=== PATIENT | female | born 1935 | race Caucasian/White ===

== ENCOUNTER 2016-12-26 13:34 | Emergency (ER) | payer MEDICARE, BC ==
[~2016-12-26] VITALS: Ht 168.9 cm; Wt 70.0 kg
[~2016-12-26 13:34] MED LIST: ATOR20TA PO; LORA-392 PO; METO50TA PO; REQU2TAB3 PO; ULTR50TA PO
[2016-12-26 13:43] VITALS: BP 124/62; PULSE 53; RESP 16; TEMP 97.6; O2SAT 100
[2016-12-26] MEDS ORDERED: LIPI20TA PO (14:03)
[2016-12-26] MEDS ORDERED: TRAM50TA PO (14:03)
[2016-12-26] MEDS ORDERED: METO50TA PO (14:03)
[2016-12-26] MEDS ORDERED: ROPI2 PO (14:03)
[2016-12-26 14:07] LABS: BLOOD, URINE LARGE (NEG); GLUCOSE,URINE NEG (NEG); KETONE, URINE NEG (NEG); NITRITE,URINE NEG (NEG)
--- NOTE | 2016-12-26 14:08 | PD ---
HPI Chief Complaint: Complaint Time Seen by Provider: 14:05 Travel History International Travel<30 days: No Contact w/Intl Traveler<30days: No Traveled to known affect area: No History of Present Illness HPI 81-year-old female presents to the emergency department for evaluation of urinary urgency and frequency with intermittent dysuria. Patient denies any flank pain. She denies any fevers or chills. No vomiting. Patient has a history of restless leg syndrome, hypertension, hyperlipidemia. Patient denies any other complaints at this time. PFSH Past Medical History Hx Anticoagulant Therapy: No Arthritis: Yes Anxiety: Yes Depression: Yes Cancer: No Cardiovascular Problems: Yes High Cholesterol: Yes Chest Pain: Yes Diabetes: No Diminished Hearing: No Endocrine: No Genitourinary: Yes (HAS A CYST ON KIDNEY PER PT.) Headaches: Yes Hypertension: Yes Immune Disorder: No Musculoskeletal: Yes Neurologic: Yes (RESTLESS LEGS) Psychiatric: Yes Reproductive: No Respiratory: Yes Sleep Apnea: Yes (USES CPAP MACHINE) Tetanus Vaccination: < 5 Years Influenza Vaccination: Yes ?: Not Past Surgical History Abdominal Surgery: Yes (CHOLECYSTECTOMY) Cholecystectomy: Yes Eye Surgery: Yes (BIALTERAL CATARACT REMOVAL) Gynecologic Surgery: Yes (HYSTERECTOMY) Hysterectomy: Yes Oral Surgery: Yes (DENTAL IMPLANTS) Other Surgery: Yes Social History Alcohol Use: Yes (Socially) Tobacco Use: No Substance Use: No Allergies-Medications (Allergen,Severity, Reaction): Coded Allergies: No Known Allergies (Verified , 12/26/16) Reported Meds & Prescriptions Reported Meds & Active Scripts Active Reported Metoprolol Tartrate 50 Mg Tab 50 Mg PO DAILY Lipitor (Atorvastatin Calcium) 20 Mg Tab 20 Mg PO HS Requip (Ropinirole HCl) 2 Mg Tab 2 Mg PO HS Tramadol (Tramadol HCl) 50 Mg Tab 50 Mg PO Q4H PRN Review of Systems Except as stated in HPI: all other systems reviewed are Neg Physical Exam Narrative GENERAL: Well-developed well-nourished elderly female patient, ambulatory. Afebrile. Patient appears well on exam. SKIN: Warm and dry. HEAD: Normocephalic. Atraumatic. EYES: No scleral icterus. No injection or drainage. NECK: Supple, trachea midline. No JVD or lymphadenopathy. CARDIOVASCULAR: Regular rate and rhythm without murmurs, gallops, or rubs. RESPIRATORY: Breath sounds equal bilaterally. No accessory muscle use. Lungs sounds are clear to auscultation. GASTROINTESTINAL: Abdomen soft, non-tender, nondistended. MUSCULOSKELETAL: No cyanosis, or edema. BACK: No CVA tenderness. Data Data Last Documented VS Vital Signs Date Time Temp Pulse Resp B/P Pulse Ox O2 Delivery O2 Flow Rate FiO2 12/26/16 13:43 97.6 53 16 124/62 100 Orders Urinalysis - C+S If Indicated (12/26/16 13:45) Ct Abd/Pel W/O Iv Contrast (12/26/16 ) Labs Laboratory Tests Test 12/26/16 13:55 Urine Collection Type CLEAN CATCH Urine Color YELLOW Urine Turbidity CLEAR Urine pH 6.0 Urine Specific [place] 1.023 Urine Protein NEG mg/dL Urine Glucose (UA) NEG mg/dL Urine Ketones NEG mg/dL Urine Occult Blood LARGE Urine Nitrite NEG Urine Bilirubin NEG Urine Leukocyte Esterase NEG Urine RBC 15-19 /hpf Urine WBC 0-2 /hpf Urine Squamous Epithelial 0-5 /hpf Cells Microscopic Urinalysis Comment CULT NOT INDICATED MDM Medical Decision Making Medical Screen Exam Complete: Yes Emergency Medical Condition: Yes Medical Record Reviewed: Yes Differential Diagnosis UTI versus pyelonephritis versus dysuria versus unlikely nephrolithiasis Narrative Course 81-year-old female presents to the emergency department for evaluation of urinary frequency and urgency with intermittent dysuria. Patient is nontoxic appearing and physical exam is reassuring. UA is ordered and pending. UA shows large occult blood, 15-19 rbc's, no evidence of acute infection. CT abdomen/pelvis without IV contrast is ordered to rule out nephrolithiasis. CT abdomen/pelvis shows bilobular septated cyst 6.2 cm in size upper pole the left kidney; 6.2 cm lobular cystic abnormality in the right pelvis adnexa or with curvilinear areas of calcified wall most likely representing ovarian cyst; uncomplicated diverticuli the colon predominating in the descending and sigmoid region; surgical absence of gallbladder and uterus. Patient reports history of above cyst and is followed with her primary care physician. I instructed her to follow back up with her primary care physician for urinary symptoms. Patient appears well and nontoxic on physical exam. She' ll be discharged with a prescription for Pyridium. She is agreeable to this plan. Diagnosis Primary Impression: Dysuria Referrals: Primary Care Physician call for appointment Patient Instructions: Dysuria (ED), General Instructions Additional Instructions: Take Pyridium as instructed as needed. Follow-up with your primary care physician Return to the emergency department for any acute worsening of symptoms. Med/Other Pt SpecificInfo: Prescription(s) given Scripts Phenazopyridine (Pyridium)200 Mg Dcx027 Mg PO Q8HR PRN (DYSURIA) #12 TAB Ref 0 Prov:Lucía Sullivan 12/26/16 Disposition: 01 DISCHARGE HOME Condition: Stable Lucía Sullivan Dec 26, 2016 14:08
[2016-12-26 14:14] LABS: METHOD OF COLLECTION CLEAN CATCH; URINE COLOR YELLOW (YELLW/STRAW); WBC, URINE 0-2 /hpf (0-5)
[2016-12-26 14:15] LABS: COMMENT (UR) CULT NOT INDICATED; CULTURE IF INDICATED CULT NOT INDICATED; RBC, URINE 15-19 /hpf (0-3); SQUAMOUS EPITHELIAL CELL URINE 0-5 /hpf (0-5)
--- NOTE | 2016-12-26 15:42 | RADHPO ---
EXAM DATE/TIME: 12/26/2016 15:21 [facility] COMPARISON: No previous studies available for comparison. INDICATIONS : Intermittent dysuria, hematuria with frequent urination. ORAL CONTRAST: No oral contrast ingested. RADIATION DOSE: 12.99 CTDIvol (mGy) MEDICAL HISTORY : Hypertension. SURGICAL HISTORY : Cholecystectomy. Hysterectomy. ENCOUNTER: Initial ACUITY: 2 days PAIN SCALE: 8/10 LOCATION: abdomen TECHNIQUE: Volumetric scanning of the abdomen and pelvis was performed. Using automated exposure control and ad justment of the mA and/or kV according to patient size, radiation dose was kept as low as reasonably achievable to obtain optimal diagnostic quality images. FINDINGS: LOWER LUNGS: The visualized lower lungs are clear. LIVER: Homogeneous density without lesion. There is no dilation of the biliary tree. Clips in place prior c holecystectomy. SPLEEN: Normal size without lesion. PANCREAS: Within normal limits. KIDNEYS: Normal in size and shape. There is no , stone, or hydronephrosis. There is a septated cyst off the u pper pole of the left kidney measuring maximally 6.4 cm in size ADRENAL GLANDS: Within normal limits. VASCULAR: There is no aortic aneurysm. BOWEL/MESENTERY: Diverticuli of the colon predominating in the descending and sigmoid region. ABDOMINAL WALL: Within normal limits. RETROPERITONEUM: There is no lymphadenopathy. BLADDER: No wall thickening or mass. REPRODUCTIVE: Surgical absence of uterus. In the right pelvis there is 6.2 x 4.4 cm somewhat globular cystic fluidl jackson collection homogeneous with some portions of the wall curvilinear calcified. This may represent a n ovarian cyst. This does abut the sigmoid colon INGUINAL: There is no lymphadenopathy or hernia. MUSCULOSKELETAL: Bony structures are osteopenic with remote kyphoplasty of T12 and interspersed degenerative changes o f lumbar spine. 1 CONCLUSION: Bilobular septated cyst 6.2 cm in size upper pole the left kidney. . 6.2 cm lobular cystic abnormality in the right pelv is adnexa or with curvilinear areas of calcified wall most likely representing ovarian cyst. Uncomplicated diverticuli the colon predominating in the descending and sigmoid region. surgical absence of gallbladder and uterus. Donavon Reese MD on December 26, 2016 at 15:35 Board Certified Radiologist. This report was verified electronically.
[2016-12-26] MEDS ORDERED: PYRI200T4 PO (15:49)
== END 2016-12-26 15:56 | disposition home or self-care (01) ==
LOC: PHEFT 13:34
DX: R30.0 Dysuria (principal); I10 Essential (primary) hypertension
CPT/HCPCS: 74176; 81001

== ENCOUNTER 2017-06-02 12:15 | Emergency (ER) | payer MEDICARE, BC ==
[~2017-06-02] VITALS: Ht 167.6 cm; Wt 70.0 kg
[~2017-06-02 12:15] MED LIST changes: -ATOR20TA PO; +LIPI20TA PO; -LORA-392 PO; +PYRI200T4 PO; -REQU2TAB3 PO; +ROPI2 PO; +TRAM50TA PO; -ULTR50TA PO
[2017-06-02 12:16] VITALS: BP 105/43; PULSE 48; RESP 16; TEMP 97.7; O2SAT 97
[2017-06-02] MEDS ORDERED: LORA-373 PO (12:33)
[2017-06-02] MEDS ORDERED: SODIUM CHLOR 0.9% 1000 ML INJ 1,000 ML IV SCH (12:54)
--- NOTE | 2017-06-02 12:59 | PD ---
HPI Chief Complaint: Abdominal Pain Time Seen by Provider: 12:49 Travel History International Travel<30 days: No Contact w/Intl Traveler<30days: No Traveled to known affect area: No History of Present Illness HPI 82-year-old female complains of abdominal pain and diarrhea. Patient states that she had left sided kidney stone removal by Dr. Salgado about 2 months ago. Patient states that she has persistent left low quadrant abdominal pain since then. Patient states the pain is sharp pain localized to left low quadrant of the abdomen. Patient denies any pain radiation. Patient states the pain is worse sometimes with movement. Patient denies any nausea vomiting. Patient has intermittent loose stool for the past 2 months. Patient denies any vaginal discharge or bleeding. Patient denies any dysuria or frequency. On a scale of 1-10 the pain is a 5. Patient status post hysterectomy, cholecystectomy. PFSH Past Medical History Hx Anticoagulant Therapy: No Arthritis: Yes Anxiety: Yes Depression: Yes Cancer: No Cardiovascular Problems: Yes High Cholesterol: Yes Chest Pain: Yes Diabetes: No Diminished Hearing: No Endocrine: No Genitourinary: Yes (HAS A CYST ON KIDNEY PER PT.) Headaches: Yes Hypertension: Yes Immune Disorder: No Musculoskeletal: Yes Neurologic: Yes (RESTLESS LEGS) Psychiatric: Yes Reproductive: No Respiratory: Yes Sleep Apnea: Yes (USES CPAP MACHINE) ?: Not Past Surgical History Abdominal Surgery: Yes (CHOLECYSTECTOMY) Cholecystectomy: Yes Eye Surgery: Yes (BIALTERAL CATARACT REMOVAL) Gynecologic Surgery: Yes (HYSTERECTOMY) Hysterectomy: Yes Oral Surgery: Yes (DENTAL IMPLANTS) Other Surgery: Yes Social History Alcohol Use: Yes (Socially) Tobacco Use: No Substance Use: No Allergies-Medications (Allergen,Severity, Reaction): Coded Allergies: No Known Allergies (Verified , 06/02/17) Reported Meds & Prescriptions Reported Meds & Active Scripts Active Reported Lorazepam 0.5 Mg Tab 0.5 Mg PO Q6H PRN Metoprolol Tartrate 50 Mg Tab 50 Mg PO DAILY Lipitor (Atorvastatin Calcium) 20 Mg Tab 20 Mg PO HS Requip (Ropinirole HCl) 2 Mg Tab 2 Mg PO HS Tramadol (Tramadol HCl) 50 Mg Tab 50 Mg PO Q4H PRN Review of Systems General / Constitutional: No: Fever Eyes: No: Visual changes HENT: No: Headaches Cardiovascular: No: Chest Pain or Discomfort Respiratory: No: Shortness of Breath Gastrointestinal: Positive: Diarrhea, Abdominal Pain Genitourinary: No: Dysuria Musculoskeletal: No: Pain Skin: No Rash Neurologic: No: Weakness Psychiatric: No: Depression Endocrine: No: Polydipsia Hematologic/Lymphatic: No: Easy Bruising Physical Exam Narrative GENERAL: Well-nourished, well-developed patient. SKIN: Focused skin assessment warm/dry. HEAD: Normocephalic. EYES: No scleral icterus. No injection or drainage. NECK: Supple, trachea midline. No JVD or lymphadenopathy. CARDIOVASCULAR: Regular rate and rhythm without murmurs, gallops, or rubs. RESPIRATORY: Breath sounds equal bilaterally. No accessory muscle use. GASTROINTESTINAL: Abdomen soft, nondistended. Patient has mild tenderness on palpation left low quadrant of the abdomen. No rebound tenderness. No mass. MUSCULOSKELETAL: No cyanosis, or edema. BACK: Nontender without obvious deformity. No CVA tenderness. Neurologic exam normal. Data Data Last Documented VS Vital Signs Date Time Temp Pulse Resp B/P Pulse Ox O2 Delivery O2 Flow Rate FiO2 06/02/17 14:20 62 122/47 99 06/02/17 12:16 97.7 16 Orders Complete Blood Count With Diff (06/02/17 12:54) Comprehensive Metabolic Panel (06/02/17 12:54) Lipase (06/02/17 12:54) Prothrombin Time / Inr (Pt) (06/02/17 12:54) Act Partial Throm Time (Ptt) (06/02/17 12:54) Urinalysis - C+S If Indicated (06/02/17 12:54) Ct Abd/Pel W Iv Contrast(Rout) (06/02/17 12:54) Iv Access Insert/Monitor (06/02/17 12:54) Ecg Monitoring (06/02/17 12:54) Oximetry (06/02/17 12:54) Pantoprazole Inj (Protonix Inj) (06/02/17 13:00) Sodium Chlor 0.9% 1000 Ml Inj (Ns 1000 M (06/02/17 12:54) Iohexol 350 Inj (Omnipaque 350 Inj) (06/02/17 13:59) Labs Laboratory Tests Test 06/02/17 06/02/17 12:45 13:03 Urine Collection Type CLEAN CATCH Urine Color YELLOW Urine Turbidity MOD Urine pH 5.5 Urine Specific [place] 1.026 Urine Protein TRACE mg/dL Urine Glucose (UA) NEG mg/dL Urine Ketones TRACE mg/dL Urine Occult Blood NEG Urine Nitrite NEG Urine Bilirubin NEG Urine Leukocyte Esterase TRACE Urine WBC 3-5 /hpf Urine Squamous Epithelial 6-8 /hpf Cells Urine Transitional Epithelial 0-5 /hpf Cells Urine Calcium Oxalate Crystals FEW /hpf Urine Amorphous Sediment MOD Urine Bacteria FEW /hpf Urine Hyaline Casts 0-2 /lpf Microscopic Urinalysis Comment CULT NOT INDICATED Urine Collection Time 1245 White Blood Count 5.7 TH/MM3 Red Blood Count 4.07 MIL/MM3 Hemoglobin 13.4 GM/DL Hematocrit 39.9 % Mean Corpuscular Volume 98.1 FL Mean Corpuscular Hemoglobin 33.1 PG Mean Corpuscular Hemoglobin 33.7 % Concent Red Cell Distribution Width 12.9 % Platelet Count 271 TH/MM3 Mean Platelet Volume 7.8 FL Neutrophils (%) (Auto) 56.0 % Lymphocytes (%) (Auto) 29.7 % Monocytes (%) (Auto) 10.4 % Eosinophils (%) (Auto) 3.1 % Basophils (%) (Auto) 0.8 % Neutrophils # (Auto) 3.1 TH/MM3 Lymphocytes # (Auto) 1.7 TH/MM3 Monocytes # (Auto) 0.6 TH/MM3 Eosinophils # (Auto) 0.2 TH/MM3 Basophils # (Auto) 0.0 TH/MM3 CBC Comment DIFF FINAL Differential Comment Prothrombin Time 10.4 SEC Prothromb Time International 0.9 RATIO Ratio Activated Partial 25.2 SEC Thromboplast Time Sodium Level 146 MEQ/L Potassium Level 4.9 MEQ/L Chloride Level 107 MEQ/L Carbon Dioxide Level 31.5 MEQ/L Anion Gap 8 MEQ/L Blood Urea Nitrogen 21 MG/DL Creatinine 1.00 MG/DL Estimat Glomerular Filtration 53 ML/MIN Rate Random Glucose 81 MG/DL Calcium Level 9.1 MG/DL Total Bilirubin 0.4 MG/DL Aspartate Amino Transf 22 U/L (AST/SGOT) Alanine Aminotransferase 23 U/L (ALT/SGPT) Alkaline Phosphatase 92 U/L Total Protein 7.1 GM/DL Albumin 3.4 GM/DL Lipase 105 U/L MDM Medical Decision Making Medical Screen Exam Complete: Yes Emergency Medical Condition: Yes Interpretation(s) Last Impressions Abdomen/Pelvis CT 06/02/17 1254 Signed Impressions: Service Date/Time: Friday, June 02, 2017 13:47 - CONCLUSION: 1. No new findings within the abdomen and pelvis compared with December 2016. Colonic diverticulosis without diverticulitis. 2. Decrease in size of right adnexal lesion with measurements given above, probably a complex cyst. 3. Previous hysterectomy and cholecystectomy. Mild fatty liver. Stable left renal cyst. Efe Richards MD 1455 PM. CBC within normal limit. CMP within normal limits. UA shows few bacteria. Differential Diagnosis Differential diagnosis including UTI, pyelonephritis, nephrolithiasis, colitis, adhesion pain. Narrative Course 82-year-old female with left low quadrant abdominal pain and intermittent diarrhea for the past 2 months. Diagnosis Primary Impression: Abdominal colic Patient Instructions: General Instructions Additional Instructions: Tylenol as needed for pain. Follow-up with personal physician. Return if persistent problem or worse. Med/Other Pt SpecificInfo: No Change to Meds Disposition: 01 DISCHARGE HOME Condition: Stable Ab Blanc MD Jun 02, 2017 12:59
[2017-06-02] MEDS ORDERED: PANTOPRAZOLE SODIUM 40 MG VIAL IVP ONE (13:00)
[2017-06-02 13:21] LABS: AUTOMATED NEUTROPHIL # 3.1 TH/MM3 (1.8-7.7); BASOPHIL % 0.8 % (0.0-2.0); EOSINOPHIL # 0.2 TH/MM3 (0-0.4); EOSINOPHIL % 3.1 % (0.0-4.0); HEMATOCRIT 39.9 % (35.0-46.0); HEMO FLAGS DIFF FINAL; LYMPH % 29.7 % (9.0-44.0); LYMPHOCYTE # 1.7 TH/MM3 (1.0-4.8); MEAN CELL VOLUME 98.1 FL (80.0-100.0); MEAN CORPUSCULAR HEMOGLOBIN 33.1 PG (27.0-34.0); MEAN CORPUSCULAR HGB CONC 33.7 % (32.0-36.0); MONO % 10.4 % (0.0-8.0); PLATELET COUNT 271 TH/MM3 (150-450); RED BLOOD COUNT 4.07 MIL/MM3 (4.00-5.30); RED CELL DISTRIBUTION WIDTH 12.9 % (11.6-17.2); WHITE BLOOD COUNT 5.7 TH/MM3 (4.0-11.0)
[2017-06-02 13:23] LABS: BLOOD, URINE NEG (NEG); GLUCOSE,URINE NEG (NEG); KETONE, URINE TRACE mg/dL (NEG); NITRITE,URINE NEG (NEG); PH, URINE 5.5 (5.0-8.5)
[2017-06-02 13:25] LABS: METHOD OF COLLECTION CLEAN CATCH; URINE COLOR YELLOW (YELLW/STRAW)
[2017-06-02 13:28] LABS: BACTERIA, URINE FEW /hpf; CALCIUM OXALATE CRYSTALS,URINE FEW /hpf; COMMENT (UR) CULT NOT INDICATED; COMMENT2 (UR) MUCOUS PRESENT; CULTURE IF INDICATED CULT NOT INDICATED; HYALINE CAST, URINE 0-2 /lpf (RARE); TRANSITIONAL EPI CELLS, URINE 0-5 /hpf
[2017-06-02 13:29] LABS: CHLORIDE 107 MEQ/L (98-107); POTASSIUM 4.9 MEQ/L (3.5-5.1); SODIUM (NA) 146 MEQ/L (136-145)
[2017-06-02 13:33] LABS: ANION GAP 8 MEQ/L (5-15); BICARBONATE 31.5 MEQ/L (21.0-32.0); BLOOD UREA NITROGEN 21 MG/DL (7-18)
[2017-06-02 13:34] LABS: APTT (PATIENT) 25.2 SEC (24.3-30.1); INTERNATIONAL NORMALIZED RATIO 0.9 RATIO; PROTHROMBIN TIME - PATIENT 10.4 SEC (9.8-11.6)
[2017-06-02 13:35] VITALS: O2SAT 97
[2017-06-02 13:36] VITALS: BP 121/49; PULSE 58; O2SAT 97
[2017-06-02 13:36] LABS: ALT (GPT) 23 U/L (10-53); AST (GOT) 22 U/L (15-37); GLOMERULAR FILTRATION RATE 53 ML/MIN (>89)
[2017-06-02 13:38] LABS: TOTAL BILIRUBIN ADULT 0.4 MG/DL (0.2-1.0)
[2017-06-02 13:39] LABS: ALKALINE PHOSPHATASE 92 U/L (45-117)
[2017-06-02] MEDS ORDERED: IOHEXOL 350 MG/ML 10 ML VIAL (for RAD DIAG) IV ONE (13:59)
[2017-06-02 14:20] VITALS: BP 122/47; PULSE 62; O2SAT 99
--- NOTE | 2017-06-02 14:40 | RADRPT ---
EXAM DATE/TIME: 06/02/2017 13:47 [facility] COMPARISON: CT ABDOMEN & PELVIS W/O CONTRAST, December 26, 2016, 15:21. INDICATIONS : Left lower quadrant pain . IV CONTRAST: 85 cc Omnipaque 350 (iohexol) IV ORAL CONTRAST: No oral contrast ingested. RADIATION DOSE: 9.16 CTDIvol (mGy) MEDICAL HISTORY : Hypertension. SURGICAL HISTORY : Cholecystectomy. Hysterectomy. ENCOUNTER: Initial ACUITY: 2 months PAIN SCALE: 3/10 LOCATION: Left lower quadrant TECHNIQUE: Volumetric scanning of the abdomen and pelvis was performed. Using automated exposure control and ad justment of the mA and/or kV according to patient size, radiation dose was kept as low as reasonably achievable to obtain optimal diagnostic quality images. DICOM format image data is available electro nically for review and comparison. FINDINGS: Compare with December 2016. Lung bases remain clear except for minimal linear scarring. Mild fatty liver. Previous cholecystectomy with mild biliary ductal dilatation is stable. Spleen, adr enals and pancreas unremarkable. Stable 6.2 cm bilobed left renal cyst with septation. There is a partially cystic right adnexal lesion measuring about 4.8 x 3.6 cm, decreased in size from previous measurement of 6.2 x 4.4 cm probably related to prior surgery or right ovarian tissue and c ystic change. There is previous hysterectomy. There is colonic diverticulosis without evidence for diverticulitis. No free fluid or free air. No marianne wel obstruction. CONCLUSION: 1. No new findings within the abdomen and pelvis compared with December 2016. Colonic diverticulosis w ithout diverticulitis. 2. Decrease in size of right adnexal lesion with measurements given above, probably a complex cyst. 3. Previous hysterectomy and cholecystectomy. Mild fatty liver. Stable left renal cyst. Efe Richards MD on June 02, 2017 at 14:31 Board Certified Radiologist. This report was verified electronically.
== END 2017-06-02 15:10 | disposition home or self-care (01) ==
LOC: PHED 12:15
DX: R10.84 Generalized abdominal pain (principal); R10.32 Left lower quadrant pain; R19.7 Diarrhea, unspecified; I10 Essential (primary) hypertension; E78.00 Pure hypercholesterolemia, unspecified; G47.30 Sleep apnea, unspecified; Z87.39 Personal history of other diseases of the musculoskeletal system and connective tissue; Z86.59 Personal history of other mental and behavioral disorders; Z86.79 Personal history of other diseases of the circulatory system; Z87.448 Personal history of other diseases of urinary system
CPT/HCPCS: 74177; 80053; 81001; 83690; 85025; 85610; 85730; 96361; 96374; 99285; C9113; J7030; Q9967

== ENCOUNTER 2018-10-20 20:58 | Observation (INO) ==
[2018-10-20 21:46] LABS: Baso # (Auto) 0.1 th/mm3 (0.0-0.2); Baso % (Auto) 1.2 % (0.0-2.0); Eos # (Auto) 0.1 th/mm3 (0.0-0.4); Eos % (Auto) 1.4 % (0.0-4.0); Hematocrit 42.5 % (35.0-46.0); Hemoglobin 14.1 gm/dL (11.6-15.3); Lymph # (Auto) 1.6 th/mm3 (1.0-4.8); Lymph % (Auto) 25.6 % (9.0-44.0); Mean Corpuscular HGB Conc 33.2 % (32.0-36.0); Mean Corpuscular Volume 99.6 fL (80.0-100.0); Mean Platelet Volume 8.1 fL (7.0-11.0); Mono # (Auto) 0.5 th/mm3 (0.0-0.9); Mono % (Auto) 7.9 % (0.0-8.0); Neut # (Auto) 3.9 th/mm3 (1.8-7.7); Neut % (Auto) 63.9 % (16.0-70.0); Platelet Count 253 th/mm3 (150-450); Red Blood Count 4.26 mil/mm3 (4.00-5.30); Red Cell Distribution Width 13.2 % (11.6-17.2); White Blood Count 6.2 th/mm3 (4.0-11.0)
--- NOTE | 2018-10-20 21:46 | ED ---
HPI General Chief Complaint: Chest Pain Stated Complaint: stomach pain x3 days/now CP Time Seen by Provider: 10/20/18 21:17 Source: patient Mode of arrival: ambulatory Limitations: no limitations History of Present Illness HPI narrative: 83-year-old female presents to the emergency department by private transportation for complaint of chest pain for the past hour. Patient states pain is 5/10 in intensity. Pain radiates to her mid back. Patient states for the past 3 days she has been having upper abdominal pain that radiates to her back. Patient is status post hysterectomy and cholecystectomy and tummy tuck in the past. Patient has history for hypertension and dyslipidemia. Patient has been taking her medications as prescribed. Patient denies personal history of CAD. Patient is uncertain whether or not she has had any type of stress test in the past. Patient denies fever or chills. Patient had no sweats no shortness of breath and no nausea or vomiting. Patient states abdominal pain for the past 3 days has also been 5/10 in intensity and has not affected her appetite or her activities of daily living. Patient states she is not used to having chest pain so presents at this time for further evaluation. Patient is unable to identify exacerbating or alleviating factors. Patient is taken no medications prior to arrival to the emergency department. MD complaint: Reports chest pain STEMI Alert: No Onset (ago): minute(s) Duration: constant Onset: during rest Pain location: Reports substernal and left chest Severity: moderate Severity scale (1-10): 5 Quality: Reports tightness Pain radiation: Reports back Relieving factors: nothing Exacerbating factors: nothing Context: Denies recent illness, recent surgery, recent immobilization, recent travel, trauma/injury, new medications and history of DVT/PE Associated symptoms: Denies nausea, vomiting, diaphoresis, dyspnea, sense of impending doom, syncope, palpitations, fever, cough and leg swelling Treatments prior to arrival chest pain: Reports none Related Data On Oral Contraceptives: No Home Medications Medication Instructions Recorded Confirmed carbidopa 50 mg PO QPM 10/20/18 10/20/18 lisinopril 20 mg PO QPM 10/20/18 10/20/18 metoprolol tartrate 50 mg PO QPM 10/20/18 10/20/18 tramadol 50 mg PO BID 10/20/18 10/20/18 Allergies Allergy/AdvReac Type Severity Reaction Status Date / Time No Known Allergies Allergy Verified 10/20/18 21:10 Review of Systems ROS: all other systems reviewed are negative PMFSH History History Provided By: Patient (Hypertension dyslipidemia cholecystectomy hysterectomy abdominoplasty) Medical History Medical History Generalized headaches (Acute) Hx of hysterectomy (Acute) Hypertension (Acute) Restless leg (Acute) Surgical History Surgical History Hx of abdominoplasty (Acute) Hx of cholecystectomy (Acute) Social History Social History Substance History: No History of Abuse Second Hand Smoke Exposure: No Smoking Status: Never smoker How Often Do You Have a Drink Containing Alcohol: 2 to 4 times a month Recent Travel in [facility] within the Last 8 Weeks: No Recent Out of Country Travel within the Last 8 Weeks: No Immunization History Tetanus Immunization: Unsure Exam Narrative Exam Narrative: GENERAL: Well-nourished, well-developed patient. No acute distress no respiratory distress. SKIN: Focused skin assessment warm/dry. HEAD: Normocephalic. EYES: No scleral icterus. No injection or drainage. NECK: Supple, trachea midline. No JVD or lymphadenopathy. CARDIOVASCULAR: Regular rate and rhythm without murmurs, gallops, or rubs. Chest wall: Nontender to palpation. Pulses: Bilateral radial and dorsalis pedis pulses 2+ to palpation. RESPIRATORY: Breath sounds equal bilaterally. No accessory muscle use. GASTROINTESTINAL: Abdomen soft, TTP, nondistended. Left upper quadrant tenderness to palpation no palpable pulsatile mass. No guarding or rebound. MUSCULOSKELETAL: No cyanosis, or edema. BACK: Nontender without obvious deformity. No CVA tenderness. Course Consultations Consultation #1: discussed with [facility] service agrees for OBS social media developer at [facility] Initial Documented Vital Signs Temperature 98.3 F 10/20/18 21:10 Pulse Rate 85 10/20/18 21:10 Respiratory Rate 18 10/20/18 21:10 Blood Pressure 196/91 H 10/20/18 21:10 Pulse Oximetry 98 10/20/18 21:10 Last Documented Vital Signs Temperature 98.3 F 10/20/18 21:10 Pulse Rate 82 10/20/18 22:38 Respiratory Rate 16 11/19/18 22:38 Blood Pressure 158/58 H 10/20/18 22:38 Pulse Oximetry 96 10/20/18 22:38 Medical Decision Making MDM Narrative Medical decision making narrative: 83-year-old female with hypertension and dyslipidemia presents with complaint of 3 days of abdominal pain and now 1 hour of left-sided retrosternal chest pain radiating into the back. No medications taken prior to arrival to the emergency department. No known history of difficulties or problems with aorta. Review of medical records indicates [address] abdomen pelvis did not mention any abdominal aortic aneurysm. EKG performed shows normal sinus rhythm rate [address] segment elevation no injury pattern patient was placed on cardiac nurse specialist with continuous pulse oximetry IV access obtained patient ordered aspirin 162 mg as well as sublingual nitroglycerin to be given for ongoing pain to hold for blood pressure 100 mmHg or less or to hold for resolution of chest pain. At 22:20 chest pain has decreased to 3/10 in intensity after sublingual nitroglycerin patient reports she is concerned about inflammation of her stomach lining with some burning; patient still has referred pain into her back. Will obtain a CTA thoracic and abdominal aorta to evaluate for dissection. We will administer morphine sulfate 2 mg IV, Zofran 4 mg IV, Protonix 40 mg IV and infuse maintenance fluids normal saline at 100 cc an hour if imaging shows no evidence of a dissection or aneurysm or acute process my plan would be to admit patient for chest pain center per protocol. @ 12:20 CTA no aneurysm and no dissection. Call placed to [facility] for OBS X RAY EQUIPMENT TESTER admission; patient remains pain free aware of labs cxr ekg and cta results: cardiac risks: age htn high cholesterol atherosclerosis by cta. Medical Screen Exam Complete: Yes Emergency Medical Condition: Yes Differential Diagnosis Differential Diagnosis: Chest pain, atypical chest pain, ACS, RI aneurysm, pancreatitis, choledocholithiasis, gastritis Medical Records Medical records reviewed: Yes I reviewed the patient's medical records. Lab Data Lab results reviewed: Yes I reviewed the patient's lab results. Result diagrams: 10/20/18 21:27 10/20/18 21:27 Lab Results 10/20/18 10/20/18 10/20/18 Range/Units 21:27 21:27 21:27 CBC w Diff Auto diff final WBC 6.2 (4.0-11.0) th/mm3 RBC 4.26 (4.00-5.30) mil/mm3 Hgb 14.1 (11.6-15.3) gm/dL Hct 42.5 (35.0-46.0) % MCV 99.6 (80.0-100.0) fL MCH 33.0 (27.0-34.0) pg MCHC 33.2 (32.0-36.0) % RDW 13.2 (11.6-17.2) % Plt Count 253 (150-450) th/mm3 MPV 8.1 (7.0-11.0) fL Neut % (Auto) 63.9 (16.0-70.0) % Lymph % (Auto) 25.6 (9.0-44.0) % [place] % (Auto) 7.9 (0.0-8.0) % Eos % (Auto) 1.4 (0.0-4.0) % Baso % (Auto) 1.2 (0.0-2.0) % Neut # (Auto) 3.9 (1.8-7.7) th/mm3 Lymph # (Auto) 1.6 (1.0-4.8) th/mm3 [place] # (Auto) 0.5 (0.0-0.9) th/mm3 Eos # (Auto) 0.1 (0.0-0.4) th/mm3 Baso # (Auto) 0.1 (0.0-0.2) th/mm3 WBC Differential . Differential Comment . PT 10.0 (9.8-11.6) sec INR 1.0 Ratio APTT 25.0 (23.4-31.7) sec Sodium 145 (136-145) meq/L Potassium 4.3 (3.5-5.1) meq/L Chloride 109 H (98-107) meq/L Carbon Dioxide 28.2 (21.0-32.0) meq/L Anion Gap 8 (5-15) meq/L BUN 20 H (7-18) mg/dL Creatinine 0.73 (0.50-1.00) mg/dL Estimated GFR 76 L (>89) mL/min Random Glucose 102 (74-106) mg/dL Calcium 8.5 (8.5-10.1) mg/dL Total Bilirubin 0.5 (0.2-1.0) mg/dL AST 36 (15-37) U/L ALT 11 (10-53) U/L Alkaline Phosphatase 106 (45-117) U/L Troponin I Less than 0.02 L (0.02-0.05) ng/mL Total Protein 7.0 (6.4-8.2) g/dL Albumin 3.4 (3.4-5.0) g/dL Lipase 73 (73-393) U/L Imaging Data Radiologist's impression: Chest X-Ray 10/20/18 21:17 CONCLUSION: Bibasilar areas of hazy density likely related to mild atelectasis or consolidation. Thoracic Aorta CT 10/20/18 22:15 CONCLUSION: 1. Thoracic and abdominal aorta normal diameter. No evidence of dissection. 2. Degenerative findings of lumbar spine. Old T12 vertebral body fracture with evidence of prior vertebroplasty or kyphoplasty. 3. 2.5 cm cystic area in the right adnexal region decreased in size. 4. Colonic diverticulosis. No acute diverticulitis identified. 5. 5 mm groundglass nodular density in the left upper lung unchanged from prior chest CT of 05/01/2016. ECG Data EKG Prior to Arrival: No Attestation: I personally reviewed and interpreted this ECG as follows: (Normal sinus rhythm rate [address] elevation or injury pattern) Discharge Plan Discharge Disposition Patient Disposition: 30 Still Patient Discharge Condition Condition: Stable Discharge Details Diagnosis: Chest pain, Gastritis Physicians Team ED Provider: Fariba Low Primary Care Provider: Martina Goff Attending Provider: Senia Mirza Status ED Status: Admitted Observation Patient
[2018-10-20 21:54] LABS: Chloride 109 meq/L (98-107); Potassium 4.3 meq/L (3.5-5.1); Sodium 145 meq/L (136-145)
[2018-10-20 21:57] LABS: Calcium 8.5 mg/dL (8.5-10.1)
[2018-10-20 21:58] LABS: Albumin 3.4 g/dL (3.4-5.0); Anion Gap 8 meq/L (5-15); Blood Urea Nitrogen 20 mg/dL (7-18); Carbon Dioxide 28.2 meq/L (21.0-32.0); Glucose,Random 102 mg/dL (74-106); Lipase 73 U/L (73-393)
[2018-10-20 22:00] LABS: Alanine Aminotransferase 11 U/L (10-53)
[2018-10-20 22:01] LABS: Aspartate Aminotransferase 36 U/L (15-37); Glomerular Filtration Rate 76 mL/min (>89)
[2018-10-20 22:03] LABS: Alkaline Phosphatase 106 U/L (45-117)
[2018-10-20] MEDS ORDERED: Morphine Inj 4 MG/ML Vial IV.PUSH ONE (22:18)
[2018-10-20] MEDS ORDERED: Pantoprazole Inj 40 MG Vial IV.PUSH ONE (22:18)
--- NOTE | 2018-10-20 22:18 | XR ---
EXAM DATE: 10/20/2018 9:59 PM EST AGE/SEX: 83 years / Female INDICATIONS: Chest pain. CLINICAL DATA: This is the patient's initial encounter. Patient reports that signs and symptoms have been present for 1 day and indicates a pain score of 5/10. MEDICAL/SURGICAL HISTORY: Hypertension. None. COMPARISON: [facility], CHEST SINGLE AP, 05/01/2016. . FINDINGS: The heart size is normal. There is some hazy density seen at the bases with silhouetting of the the d iaphragms. The mid and upper lungs are clear. CONCLUSION: Bibasilar areas of hazy density likely related to mild atelectasis or consolidation. Electronically signed by: Cipriano Odom MD 10/20/2018 10:16 PM EST
[2018-10-20] MEDS ORDERED: Sod Chloride 0.9% Inj 1,000 ML IV.CONT SCH (22:30)
--- NOTE | 2018-10-21 00:14 | CT ---
EXAM DATE: 10/20/2018 11:46 PM EST AGE/SEX: 83 years / Female INDICATIONS: Abdominal and chest pain. CLINICAL DATA: This is the patient's initial encounter. Patient reports that signs and symptoms have been present for 3 days and indicates a pain score of 5/10. MEDICAL/SURGICAL HISTORY: Hypertension. Hysterectomy. Cholecystectomy. Abdominoplasty. RADIATION DOSE: 16.38 CTDI (mGy) COMPARISON: [facility], CTA CHEST W 3D RECON, 05/01/2016. [facility], CT ABDOMEN & PELVIS W CONTRAST, 06/02/2017 . . TECHNIQUE: Volumetric scanning was performed using a multi-row detector CT scanner during bolus infu david of 100 ml Omnipaque 350 (iohexol) nonionic water-soluble contrast as a single exam dose. The d adry was post processed with a variety of visualization algorithms including full volume maximum inten sity projection, multi-planar sliding thin slab reformation, curved planar reformation, and surface r endering techniques. Using automated exposure control and adjustment of the mA and/or kV according t o patient size, radiation dose was kept as low as reasonably achievable to obtain optimal diagnostic quality images. DICOM format image data is available electronically for review and comparison. FINDINGS: Diffuse aortic calcification and mild atherosclerotic disease. Aortic diameter is within normal limit s in the chest and abdomen. No evidence of dissection. The proximal branches of the thoracic aorta ar e widely patent. Coronary artery calcification is noted. Proximal superior mesenteric artery, celiac artery, and renal arteries are widely patent. Common iliac arteries, internal iliac arteries, and ext ernal iliac arteries are widely patent. No enlarged mediastinal lymph nodes. No enlarged axillary lymph nodes. Bilateral breast implants are noted. Atelectasis noted in the lungs bilaterally. 5 mm groundglass nodular density in the left lung apex on image #14. The lungs are otherwise clear. Status post cholecystectomy. Liver, spleen, pancrea s, and adrenal glands are within normal limits. X 0.5 cm cyst extending off of the superior pole and mid pole of the left kidney. Kidneys are otherwise within normal limits. No evidence of bowel dilatat ion. Multiple colonic diverticula are present. There is a 2.5 x 2.4 cm cystic area in the right adnex al region, decreased from the prior CT abdomen and pelvis of 06/02/2017 when it measured 4.8 x 3.6 cm. Appendix is not visualized. No bowel wall thickening is seen. No evidence of free air. Anterior abdom inal wall is intact. Retroperitoneum within normal limits. Urinary bladder within normal limits. Ingu inal regions are unremarkable. Degenerative findings of the lumbar spine noted with prominent facet arthrosis and broad-based disc b ulges. No acute fracture identified. There is evidence of prior vertebroplasty or kyphoplasty at T12. CONCLUSION: 1. Thoracic and abdominal aorta normal diameter. No evidence of dissection. 2. Degenerative findings of lumbar spine. Old T12 vertebral body fracture with evidence of prior elias tebroplasty or kyphoplasty. 3. 2.5 cm cystic area in the right adnexal region decreased in size. 4. Colonic diverticulosis. No acute diverticulitis identified. 5. 5 mm groundglass nodular density in the left upper lung unchanged from prior chest CT of 6. Electronically signed by: Tyrone Hilario MD 10/21/2018 12:13 AM EST
[2018-10-21] MEDS ORDERED: Acetaminophen 325 MG Tablet PO PRN (00:44)
[2018-10-21 01:32] LABS: Creatine Kinase 115 U/L (26-192)
[2018-10-21] MEDS ORDERED: CARBIDOPA 50 MG PO SCH ×2 (02:25→21:00)
[2018-10-21 04:03] VITALS: O2SAT 97
[2018-10-21 07:04] LABS: Troponin I 0.02 ng/mL (0.02-0.05)
--- NOTE | 2018-10-21 08:04 | P.HP ---
History of Present Illness Primary Care Physician: Martina Goff MD Chief Complaint: Chest pain History of Present Illness: 83-year-old female with known history of hypertension, hyperlipidemia, migraine cephalgia, restless leg syndrome who presented to the hospital because of epigastric abdominal pain and chest pain. Patient states that she has normal state of health until approximately 8 PM last night when she was sitting down watching TV and started developing pain in her epigastric area. And the pain moved up into her mid sternum radiating into her back. Patient states that the pain was a 5/10 on a pain scale. She denied any nausea, vomiting, diaphoresis, shortness of breath, dyspnea, lightheadedness, dizziness. If the pain did not go away she came to the emergency department for evaluation. In the emergency department patient was given aspirin, nitroglycerin, morphine, Protonix IV with complete resolution of her pain. Because of patient's increased risk factors for coronary artery disease it was recommended by the ER physician that the patient be observed in the chest pain center for further evaluation and management. Patient states that she has never been evaluated by dynamics ax technical architect. She has never had any stress test done before. Upon presentation emergency department patient did have accelerated hypertension and after the medication emergency department her blood pressure did improve. Currently the patient is asymptomatic. - Diagnosis (1) Chest pain Review of Systems All other systems reviewed negative except as stated in HPI Cardiovascular: Reports chest pain Gastrointestinal: Reports abdominal pain PMFSH - History History Provided By: Patient - Medical History Medical History: Medical History (Last Updated 10/21/18 @ 07:59 by RUBI Reynoso) Generalized headaches Hyperlipemia Hypertension Restless leg - Surgical History Surgical History: Surgical History (Last Updated 10/21/18 @ 07:56 by RUBI Reynoso) Hx of abdominoplasty Hx of cholecystectomy Hx of hysterectomy - Family History Family History: Family History (Last Updated 10/21/18 @ 07:56 by RUBI Reynoso) Sister Family history of Alzheimer's disease - Tobacco History Second Hand Smoke Exposure: No Tobacco Use In Past 30 Days: No Smoking Status: Former smoker (Patient quit smoking 50 years ago) Tobacco Type: Cigarettes - Alcohol History How Often Do You Have a Drink Containing Alcohol: Monthly or less - Substance Use History Substance History: No History of Abuse - Travel History Recent Travel in the [facility] Within the Last 8 Weeks: No Recent Travel Out of the Country Within the Last 8 Weeks: No - Immunization History Tetanus Immunization: Unsure Hx Influenza Vaccine This Season: Yes Medications and Allergies Active Medications: Active Medications Acetaminophen (Tylenol) 650 mg PO Q4H PRN PRN Reason: Temp > 100.4 Lisinopril (Prinivil) 20 mg PO DAILY@1800 JOSIE Metoprolol Tartrate (Lopressor) 50 mg PO DAILY@1800 JOSIE Ondansetron HCl (Zofran Inj) 4 mg IV.PUSH Q6H PRN PRN Reason: NAUSEA OR VOMITING Pt Own (Carbidopa [ Carbidopa] 50 Mg) Tablet 1 each PO HS JOSIE Sodium Chloride (Ns Flush) 2 ml IV.FLUSH UNSCH PRN PRN Reason: FLUSH AFTER USING IV ACCESS Tramadol HCl (Ultram) 50 mg PO Q12H PRN PRN Reason: HEADACHE Allergies Allergy/AdvReac Type Severity Reaction Status Date / Time No Known Allergies Allergy Verified 10/20/18 21:10 Home Medications Medication Instructions Recorded Confirmed Type carbidopa 50 mg PO QPM 10/20/18 10/20/18 History lisinopril 20 mg PO QPM 10/20/18 10/20/18 History metoprolol tartrate 50 mg PO QPM 10/20/18 10/20/18 History tramadol 50 mg PO BID 10/20/18 10/20/18 History lorazepam [Ativan] 0.5 mg PO DAILY 10/21/18 10/21/18 History Exam Vital signs: Vital Signs 10/20/18 21:10 10/20/18 21:19 10/20/18 21:20 Temperature 98.3 F Pulse Rate 85 85 83 Respiratory Rate 18 18 Blood Pressure 196/91 H 167/81 H Pulse Oximetry 98 97 95 10/20/18 21:40 10/20/18 21:41 10/20/18 21:46 Temperature Pulse Rate 91 H 93 H Respiratory Rate 16 16 16 Blood Pressure 172/74 H 178/70 H Pulse Oximetry 95 95 10/20/18 21:50 10/20/18 21:51 10/20/18 22:38 Temperature Pulse Rate 91 H 82 Respiratory Rate 18 18 16 Blood Pressure 155/76 H 158/58 H Pulse Oximetry 95 96 10/21/18 01:29 10/21/18 04:01 Temperature 97.4 F L 97.6 F Pulse Rate 69 59 L Respiratory Rate 18 20 Blood Pressure 139/63 171/73 H Pulse Oximetry 95 97 Intake & Output 10/20/18 10/21/18 10/21/18 18:59 06:59 18:59 Weight 64.8 kg Other: # Voids 1 Narrative: GENERAL: Well-developed, well-nourished, in no acute distress. alert and orientated HEENT: Head is normocephalic without any lesions or masses noted. Facial features are symmetric. Eyes: Pupils equal round reactive to light. Extraocular muscles are intact. Conjunctivae were clear. Oropharyngeal: Pharynx without any erythema edema. Tongue is midline without deviation. Buccal mucosa is moist without any masses or lesions NECK: Supple without any masses. Trachea midline no deviation. No JVD, no bruits are appreciated CARDIAC: Regular rhythm, regular rate. S1/S2 are heard. No murmurs gallops or rubs. LUNGS: Clear to auscultation bilaterally. No wheeze, rhonchi or rales. No use of accessory muscles on inspiration or expiration. ABDOMEN: Soft, nontender. Nondistended. Bowel sounds heard in all 4 quadrants. No organomegaly or masses. Negative rebound, negative guarding EXTREMITIES: No edema, pulses are equal bilaterally. No cyanosis or clubbing NEUROLOGY: Mood and affect appear appropriate. Cranial nerves II through XII grossly intact. Muscle strength 5/5 in upper and lower extremities bilaterally. Deep tendon reflexes are 2+ in upper and lower extremities bilaterally. Results - Labs CBC & Chem 7: 10/20/18 21:27 10/20/18 21:27 Labs: Laboratory Results - last 24 hr 10/20/18 10/20/18 10/20/18 21:27 21:27 21:27 CBC w Diff Auto diff final WBC 6.2 RBC 4.26 Hgb 14.1 Hct 42.5 MCV 99.6 MCH 33.0 MCHC 33.2 RDW 13.2 Plt Count 253 MPV 8.1 Neut % (Auto) 63.9 Lymph % (Auto) 25.6 [place] % (Auto) 7.9 Eos % (Auto) 1.4 Baso % (Auto) 1.2 Neut # (Auto) 3.9 Lymph # (Auto) 1.6 [place] # (Auto) 0.5 Eos # (Auto) 0.1 Baso # (Auto) 0.1 WBC Differential . Differential Comment . PT 10.0 INR 1.0 APTT 25.0 Sodium 145 Potassium 4.3 Chloride 109 H Carbon Dioxide 28.2 Anion Gap 8 BUN 20 H Creatinine 0.73 Estimated GFR 76 L Random Glucose 102 Calcium 8.5 Total Bilirubin 0.5 AST 36 ALT 11 Alkaline Phosphatase 106 Total Creatine Kinase Troponin I Less than 0.02 L Total Protein 7.0 Albumin 3.4 Lipase 73 10/21/18 10/21/18 01:00 06:03 CBC w Diff WBC RBC Hgb Hct MCV MCH MCHC RDW Plt Count MPV Neut % (Auto) Lymph % (Auto) [place] % (Auto) Eos % (Auto) Baso % (Auto) Neut # (Auto) Lymph # (Auto) [place] # (Auto) Eos # (Auto) Baso # (Auto) WBC Differential Differential Comment PT INR APTT Sodium Potassium Chloride Carbon Dioxide Anion Gap BUN Creatinine Estimated GFR Random Glucose Calcium Total Bilirubin AST ALT Alkaline Phosphatase Total Creatine Kinase 115 44 Troponin I Less than 0.02 L 0.02 Total Protein Albumin Lipase - Imaging Impressions Chest X-Ray 10/20/18 21:17 CONCLUSION: Bibasilar areas of hazy density likely related to mild atelectasis or consolidation. Thoracic Aorta CT 10/20/18 22:15 CONCLUSION: 1. Thoracic and abdominal aorta normal diameter. No evidence of dissection. 2. Degenerative findings of lumbar spine. Old T12 vertebral body fracture with evidence of prior vertebroplasty or kyphoplasty. 3. 2.5 cm cystic area in the right adnexal region decreased in size. 4. Colonic diverticulosis. No acute diverticulitis identified. 5. 5 mm groundglass nodular density in the left upper lung unchanged from prior chest CT of 05/01/2016. Caprini VTE Risk Assessment Caprini VTE Risk Assessment: Moderate/High Risk (score >= 2) Caprini Risk Assessment Model: Point Value = 1 Point Value = 2 Point Value = 3 Point Value = 5 Age 41-60 Minor surgery BMI > 25 kg/m2 Swollen legs Varicose veins or History of unexplained or recurrent spontaneous Oral contraceptives or hormone replacement Sepsis (< 1 month) Serious lung disease, including pneumonia (< 1 month) Abnormal pulmonary function Acute myocardial infarction Congestive heart failure (< 1 month) History of inflammatory bowel disease Medical patient at bed rest Age 61-74 Arthroscopic surgery Major open surgery (> 45 min) Laparoscopic surgery (> 45 min) Malignancy Confined to bed (> 72 hours) Immobilizing plaster cast Central venous access Age >= 75 History of VTE Family history of VTE Factor V Leiden Prothrombin [id number] Lupus anticoagulant Anticardiolipin antibodies Elevated serum homocysteine Heparin-induced thrombocytopenia Other congenital or acquired thrombophilia Stroke (< 1 month) Elective arthroplasty Hip, pelvis, or leg fracture Acute spinal cord injury (< 1 month) Prophylaxis Regimen: Total Risk Factor Score Risk Level Prophylaxis Regimen 0-1 Low Early ambulation 2 Moderate Order ONE of the following: *Sequential Compression Device (SCD) *Heparin 5000 units SQ BID 3-4 Higher Order ONE of the following medications: *Heparin 5000 units SQ TID *Enoxaparin/Lovenox 40 mg SQ daily (WT < 150 kg, CrCl > 30 mL/min) *Enoxaparin/Lovenox 30 mg SQ daily (WT < 150 kg, CrCl > 10-29 mL/min) *Enoxaparin/Lovenox 30 mg SQ BID (WT < 150 kg, CrCl > 30 mL/min) AND/OR *Sequential Compression Device (SCD) 5 or more Highest Order ONE of the following medications: *Heparin 5000 units SQ TID (Preferred with Epidurals) *Enoxaparin/Lovenox 40 mg SQ daily (WT < 150 kg, CrCl > 30 mL/min) *Enoxaparin/Lovenox 30 mg SQ daily (WT < 150 kg, CrCl > 10-29 mL/min) *Enoxaparin/Lovenox 30 mg SQ BID (WT < 150 kg, CrCl > 30 mL/min) AND *Sequential Compression Device (SCD) Assessment and Plan - Assessment (1) Chest pain Code(s): R07.9 - Chest pain, unspecified Status: Acute - Plan Chest pain, atypical -Patient has increased risk factors include age, postmenopausal without exogenous hormones, hypertension, hyperlipidemia, history of tobacco use -Patient has been ruled out for acute coronary event with serial cardiac enzymes are negative -Serial EKGs were reviewed by myself and indicate normal sinus rhythm without any changes -Myocardial perfusion study was performed and indicated no signs of ischemia, low risk -Continue aspirin, nitroglycerin as needed -Continue monitor telemetry Hypertension, hyperlipidemia, restless leg syndrome -Home medications continued DVT prevention -Sequential compression devices Discharge Planning: Discharge home in stable condition Activity: Ad floyd. Diet: Healthy heart diet Medication per medication reconciliation Follow-up with primary medical doctor in 1 week (1) Chest pain Qualifiers: Chest pain type: precordial pain Qualified Code(s): R07.2 - Precordial pain
[2018-10-21 09:20] VITALS: RESP 16; TEMP 97
[2018-10-21] MEDS ORDERED: Regadenoson Inj 0.4 MG/5 ML Syringe IV.PUSH ONE (10:58)
--- NOTE | 2018-10-21 12:21 | NM ---
EXAM DATE: 10/21/2018 12:14 PM EST AGE/SEX: 83 years / Female INDICATIONS:Angina. . Chest pain radiating to the back. CLINICAL DATA: This is the patient's initial encounter. Patient reports that signs and symptoms have been present for 1 day and indicates a pain score of 5/10. MEDICAL/SURGICAL HISTORY: Hypertension. Hypercholesterolemia. Hysterectomy. Cholecystectomy. COMPARISON: [facility], MYOCARDIAL PERF PHARM SPECT, 05/01/2016. . DOSE: 8.3 mCi Tc 99m Myoview at rest 27.3 mCi [id number] at stress 0.4 mg Lexiscan STRESS SYMPTOMS: Anxious, dyspnea, tingling and headache. EJECTION FRACTION: 67 % TECHNIQUE: The patient underwent pharmacologic stress with infusion of prescribed dose. Continuous ECG tracing was monitored during stress. Gated SPECT imaging was performed after stress and conventi onal SPECT imaging was performed at rest. The examination was performed on a SPECT/CT scanner, both attenuation and non-corrected datasets were reviewed. FINDINGS: Distribution: The maximum perfused segment at stress is in the anterior wall. Perfusion Study: The pattern of perfusion at stress is within normal limits. Gated Study: There are intact wall motion and wall thickening without hypokinetic or dyskinetic segm ents. The ejection fraction is calculated at 67%. RISK CATEGORY: Low (<1% Annual Motality Rate) CONCLUSION: 1. Negative examination. 2. No evidence of stressed induced or fixed perfusion abnormality. 3. Normal wall motion and ejection fraction. Electronically signed by: Gab Mcwilliams MD 10/21/2018 12:20 PM EST
[2018-10-21 12:44] VITALS: PULSE 75
[2018-10-21 13:12] VITALS: BP 148/78
--- NOTE | 2018-10-21 13:27 | ECG ---
Date Performed: 10/21/2018 Time Performed: 01:01:20 PTAGE: 83 years EKG: Sinus rhythm NORMAL ECG Since the PREVIOUS TRACING , no significant change noted PREVIOUS TRACIN10/20/2018 21.10 DOCTOR: Magaly Muniz Interpretating Date/Time 10/21/2018 13:24:30
--- NOTE | 2018-10-21 13:28 | ECG ---
Date Performed: 10/21/2018 Time Performed: 06:13:41 PTAGE: 83 years EKG: Sinus rhythm NORMAL ECG Since the PREVIOUS TRACING , no significant change noted PREVIOUS TRACIN10/21/2018 01.01 DOCTOR: Magaly Muniz Interpretating Date/Time 10/21/2018 13:24:37
--- NOTE | 2018-10-21 13:45 | ECG ---
Date Performed: 10/20/2018 Time Performed: 21:10:06 PTAGE: 83 years EKG: Sinus rhythm POSSIBLE LEFT ATRIAL ENLARGEMENT BORDERLINE ECG Compared to PREVIOUS TRACING PVCs have resolved PREVIOUS TRACIN05/01/2016 14.45 DOCTOR: Magaly Muniz Interpretating Date/Time 10/21/2018 13:44:30
[2018-10-21] MEDS ORDERED: amLODIPine 5 MG Tablet PO SCH (14:00)
[2018-10-21] MEDS ORDERED: Metoprolol Tartrate 50 MG Tablet PO SCH (18:00)
[2018-10-21] MEDS ORDERED: Lisinopril 20 MG Tablet PO SCH (18:00)
--- NOTE | 2018-10-21 18:26 | TR ---
Date Performed: 10/21/2018 Time Performed: 11:29:07 DOCTOR: Cindy Alvarenga DRUG LIST: CLINICAL HISTORY: REASON FOR TEST: Chest pain REASON FOR ENDING: OBSERVATION: CONCLUSION: Lexiscan stress test was performed under standard four minute protocol. Radionuclid e was injected one minute prior to ending the test. No electrocardiographic abormalities were present to suggest ischemia. Nuclear imaging and interpretation are pending. COMMENTS: Lexiscan stress test was performed under standard four minute protocol. Radionuclide was injected one minute prior to ending the test. No electrocardiographic abormalities were present t o suggest ischemia. Nuclear imaging and interpretation are pending.
== END 2018-10-21 13:51 | disposition home or self-care (01) ==
LOC: PHED 20:58 → PHEDA 20:58 → PH3 10-21 01:28
PROVIDERS: ADMIT Hospitalist; ATTEND Hospitalist
DX: R07.89 Other chest pain; Z79.899 Other long term (current) drug therapy; K57.30 Diverticulosis of large intestine without perforation or abscess without bleeding; G25.81 Restless legs syndrome; I10 Essential (primary) hypertension; E78.5 Hyperlipidemia, unspecified; R91.8 Other nonspecific abnormal finding of lung field

== ENCOUNTER 2018-10-30 18:00 | Observation (INO) ==
[2018-10-30] MEDS ORDERED: Sod Chloride 0.9% Inj 1,000 ML IV.CONT SCH (18:15)
--- NOTE | 2018-10-30 18:26 | ED ---
HPI General Chief Complaint: Syncope Stated Complaint: poss syncope/evac Time Seen by Provider: 10/30/18 18:03 Source: patient Mode of arrival: EMS Limitations: no limitations History of Present Illness HPI narrative: The patient is a 83-year-old female who presents to the emergency department via EMS for syncope. 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 The patient told individual next-door that she was going to pass out and then subsequently passed out while sitting down. The patient's head was against a table when she passed out, she did not fall out of the chair. The patient is unsure how long she was unconscious during the syncopal episode. She complained of nausea to the paramedics who provided her Zofran 4 mg intravenously prior to arrival. She does note a history of chronic headaches and had chest pain last week with epigastric abdominal pain and was subsequently admitted to the hospital for a stress test which was negative. The patient denies any known history of valvular disorder or arrhythmias. The patient denies any current chest pain, shortness of breath, but complains of persistent nausea. She denies abdominal pain or focal deficits. The patient does have a history of restless leg syndrome and states her right leg aches chronically for several weeks. Symptoms are moderate. The patient's primary physician is Dr. Goff, however, she states Dr. Goff is leaving and she recently saw a new physician. EMS states that the patient had some long pauses with sinus arrhythmia prior to arrival that have currently resolved. MD complaint: Reports loss of consciousness Onset (ago): minute(s) Prodromal symptoms: Reports lightheaded and nausea/vomiting Witnessed: yes - by bystander Context: Reports at rest Injuries sustained associated with event: Reports none Current symptoms: Reports nausea Treatments prior to arrival: Reports medication Related Data Home Medications Medication Instructions Recorded Confirmed carbidopa 50 mg PO QPM 10/20/18 10/30/18 lisinopril 20 mg PO QPM 10/20/18 10/30/18 metoprolol tartrate 50 mg PO QPM 10/20/18 10/30/18 tramadol 50 mg PO BID 10/20/18 10/30/18 lorazepam [Ativan] 0.5 mg PO DAILY 10/21/18 10/30/18 amlodipine [Norvasc] 10 mg PO DAILY 10/30/18 10/30/18 atorvastatin 20 mg PO DAILY 10/30/18 10/30/18 citalopram 20 mg PO DAILY 10/30/18 10/30/18 Allergies Allergy/AdvReac Type Severity Reaction Status Date / Time No Known Allergies Allergy Verified 10/20/18 21:10 Review of Systems ROS: all other systems reviewed are negative [facility] Medical History Medical History Sleep apnea (Acute) Generalized headaches (Acute) Hyperlipemia (Acute) Hypertension (Acute) Restless leg (Acute) Surgical History Surgical History Hx of abdominoplasty (Acute) Hx of cholecystectomy (Acute) Hx of hysterectomy (Acute) Family History Family History Sister Family history of Alzheimer's disease Social History Social History Substance History: No History of Abuse Second Hand Smoke Exposure: No Smoking Status: Never smoker Tobacco Type: Cigarettes How Often Do You Have a Drink Containing Alcohol: Never Recent Travel in [facility] within the Last 8 Weeks: No Recent Out of Country Travel within the Last 8 Weeks: No Exam Narrative Exam Narrative: GENERAL: Awake, alert, pleasant 83-year-old female who appears her stated age and is in no acute respiratory distress. SKIN: Focused skin assessment warm/dry. HEAD: Atraumatic. Normocephalic. EYES: Pupils equal and round. 3 mm bilateral and reactive. EOMs are intact. ENT: No nasal bleeding or discharge. Mucous membranes pink and moist. NECK: Trachea midline. No JVD. CARDIOVASCULAR: Regular rate and rhythm. No murmur appreciated. RESPIRATORY: No accessory muscle use. Clear to auscultation. Breath sounds equal bilaterally. GASTROINTESTINAL: Abdomen soft, minimal epigastric tenderness. No guarding or rigidity. MUSCULOSKELETAL: No obvious deformities. No clubbing. No cyanosis. No edema. NEUROLOGICAL: Awake and alert. No obvious cranial nerve deficits. Motor grossly within normal limits. Normal speech. Nonfocal. Oriented x4. PSYCHIATRIC: Appropriate mood and affect; insight and judgment normal. Course Initial Documented Vital Signs Pulse Rate 72 10/30/18 18:09 Respiratory Rate 18 10/30/18 18:09 Blood Pressure 203/86 H 10/30/18 18:09 Pulse Oximetry 98 10/30/18 18:09 Last Documented Vital Signs Pulse Rate 76 10/30/18 19:31 Respiratory Rate 18 10/30/18 19:31 Blood Pressure 171/74 H 10/30/18 19:31 Pulse Oximetry 99 10/30/18 19:31 Medical Decision Making MDM Narrative Medical decision making narrative: IV was established, labs are drawn and sent, and the patient was placed on cardiac telemetry monitoring and continuous pulse oximetry monitoring. EKG was ordered and interpreted. I reviewed the EMR, the patient was admitted 1 week ago for chest pain, had a nuclear medicine myocardial perfusion scan which was unremarkable. However, the patient had a syncopal episode at rest, could be discerning for underlying dysrhythmia. Patient may benefit from cardiac telemetry monitoring and echocardiogram. Orthostatic vital signs were obtained and electrolytes were sent to lab. Patient's laboratory evaluation essentially unremarkable. There was no further syncopal episodes. However, the patient did have syncope at rest, worrisome for possible dysrhythmia. Therefore, patient will be a 23-hour observation for cardiac telemetry monitoring and echocardiogram. The patient's primary physician was Dr. Martina chandler and, [facility]. I discussed the patient Dr. Mirza who agrees with 23-hour observation. Medical Screen Exam Complete: Yes Emergency Medical Condition: Yes Differential Diagnosis Differential Diagnosis: Differential diagnosis includes syncope, arrhythmia, dysrhythmia, vasovagal syncope, cardiogenic syncope, aortic stenosis, neurogenic syncope, electrolyte abnormality, dehydration, orthostatic hypotension. Lab Data Result diagrams: 10/30/18 18:20 10/30/18 18:20 Lab Results 10/30/18 10/30/18 10/30/18 Range/Units 18:20 18:20 18:20 WBC 6.2 (4.0-11.0) th/mm3 RBC 4.05 (4.00-5.30) mil/mm3 Hgb 14.2 (11.6-15.3) gm/dL Hct 41.1 (35.0-46.0) % MCV 101.4 H (80.0-100.0) fL MCH 35.2 H (27.0-34.0) pg MCHC 34.7 (32.0-36.0) % RDW 14.1 (11.6-17.2) % Plt Count 248 (150-450) th/mm3 MPV 8.5 (7.0-11.0) fL Neut % (Auto) 63.8 (16.0-70.0) % Lymph % (Auto) 22.1 (9.0-44.0) % [place] % (Auto) 11.8 H (0.0-8.0) % Eos % (Auto) 1.5 (0.0-4.0) % Baso % (Auto) 0.8 (0.0-2.0) % Neut # (Auto) 4.0 (1.8-7.7) th/mm3 Lymph # (Auto) 1.4 (1.0-4.8) th/mm3 [place] # (Auto) 0.7 (0.0-0.9) th/mm3 Eos # (Auto) 0.1 (0.0-0.4) th/mm3 Baso # (Auto) 0.1 (0.0-0.2) th/mm3 WBC Differential . Differential Comment Auto diff final PT 9.9 (9.8-11.6) sec INR 1.0 Ratio APTT 19.2 L (23.4-31.7) sec Sodium 138 (136-145) meq/L Potassium 4.4 (3.5-5.1) meq/L Chloride 108 H (98-107) meq/L Carbon Dioxide 24.5 (21.0-32.0) meq/L Anion Gap 6 (5-15) meq/L BUN 24 H (7-18) mg/dL Creatinine 0.63 (0.50-1.00) mg/dL Estimated GFR Greater than 89 (>89) mL/min Random Glucose 97 (74-106) mg/dL Calcium 9.1 (8.5-10.1) mg/dL Magnesium 2.2 (1.5-2.5) mg/dL Total Bilirubin 0.3 (0.2-1.0) mg/dL AST 30 (15-37) U/L ALT 8 L (10-53) U/L Alkaline Phosphatase 97 (45-117) U/L Troponin I Less than 0.02 L (0.02-0.05) ng/mL Total Protein 7.1 (6.4-8.2) g/dL Albumin 3.5 (3.4-5.0) g/dL ECG Data EKG Prior to Arrival: Yes Attestation: I personally reviewed and interpreted this ECG as follows: Interpretation: EKG reveals sinus rhythm with borderline first AV block, WV interval 219 ms. Discharge Plan Discharge Disposition Patient Disposition: 30 Still Patient Discharge Condition Condition: Stable Discharge Details Diagnosis: Syncope Physicians Team ED Provider: Tommy Sherman Primary Care Provider: Martina Goff Rxs /Orders / Referrals /Forms Prescriptions: No Action lisinopril 20 mg Tablet 20 mg PO QPM RF: 0 metoprolol tartrate 50 mg Tablet 50 mg PO QPM RF: 0 tramadol 50 mg Tablet 50 mg PO BID RF: 0 carbidopa 25 mg Tablet 50 mg PO QPM RF: 0 lorazepam [Ativan] 0.5 mg Tablet 0.5 mg PO DAILY RF: 0 atorvastatin 20 mg Tablet 20 mg PO DAILY RF: 0 citalopram 20 mg Tablet 20 mg PO DAILY RF: 0 amlodipine [Norvasc] 5 mg tablet 10 mg PO DAILY RF: 0 Discharge Interventions Interventions: Vital Signs Last Done: 10/30/18 19:31 Status ED Status: Admitted Observation Patient
[2018-10-30 18:33] LABS: Baso # (Auto) 0.1 th/mm3 (0.0-0.2); Baso % (Auto) 0.8 % (0.0-2.0); Eos # (Auto) 0.1 th/mm3 (0.0-0.4); Eos % (Auto) 1.5 % (0.0-4.0); Hematocrit 41.1 % (35.0-46.0); Hemoglobin 14.2 gm/dL (11.6-15.3); Lymph # (Auto) 1.4 th/mm3 (1.0-4.8); Lymph % (Auto) 22.1 % (9.0-44.0); Mean Corpuscular HGB Conc 34.7 % (32.0-36.0); Mean Corpuscular Hemoglobin 35.2 pg (27.0-34.0); Mean Corpuscular Volume 101.4 fL (80.0-100.0); Mean Platelet Volume 8.5 fL (7.0-11.0); Mono # (Auto) 0.7 th/mm3 (0.0-0.9); Mono % (Auto) 11.8 % (0.0-8.0); Neut % (Auto) 63.8 % (16.0-70.0); Platelet Count 248 th/mm3 (150-450); Red Blood Count 4.05 mil/mm3 (4.00-5.30); Red Cell Distribution Width 14.1 % (11.6-17.2); White Blood Count 6.2 th/mm3 (4.0-11.0)
[2018-10-30 18:48] LABS: Activated Partial Thrombo Time 19.2 sec (23.4-31.7); Prothrombin Time 9.9 sec (9.8-11.6)
[2018-10-30 19:06] LABS: Alanine Aminotransferase 8 U/L (10-53)
[2018-10-30 19:10] LABS: Alkaline Phosphatase 97 U/L (45-117); Total Protein 7.1 g/dL (6.4-8.2)
[2018-10-30 19:23] LABS: Albumin 3.5 g/dL (3.4-5.0); Anion Gap 6 meq/L (5-15); Aspartate Aminotransferase 30 U/L (15-37); Blood Urea Nitrogen 24 mg/dL (7-18); Calcium 9.1 mg/dL (8.5-10.1); Carbon Dioxide 24.5 meq/L (21.0-32.0); Chloride 108 meq/L (98-107); Glomerular Filtration Rate Greater Than 89 mL/min (>89); Glucose,Random 97 mg/dL (74-106); Magnesium 2.2 mg/dL (1.5-2.5); Sodium 138 meq/L (136-145)
[2018-10-30 19:25] LABS: Potassium 4.4 meq/L (3.5-5.1)
--- NOTE | 2018-10-30 20:52 | P.HP ---
History of Present Illness Service: [facility] Primary Care Physician: Martina Goff MD History of Present Illness: 83-year-old female with past medical history significant for anxiety, hypertension, hyperlipidemia, GONZALO and restless leg syndrome presents to the emergency department for evaluation of a syncopal episode. The patient reports that she was sitting down at the [place] when she suddenly felt dizzy. She stated to the person sitting next to her that she felt as though she was going to pass out and put her head down onto the table. She has no further memory of the event until she woke up on the ground. The patient reports that the people around her helped lower her to the floor. She denies any head trauma. No bystanders reported seizure-like activity. She did lose urinary continence during the episode. The patient reports 2 new recent medications; the addition of amlodipine on Saturday and the addition of citalopram for anxiety today. She was recently admitted to the hospital for chest pain where an ACS rule out and nuclear stress test were negative. She denies any associated chest pain or shortness of breath. No abdominal pain. No nausea/vomiting/diarrhea. No focal neurologic deficits. No fever/chills. At this time, the patient's symptoms are completely resolved and she is able to ambulate without issue. Review of Systems All other systems reviewed negative except as stated in HPI PMFSH - History History Provided By: Patient - Medical History Medical History: Medical History (Last Updated 10/30/18 @ 20:47 by Senia Mirza MD) Anxiety Sleep apnea Generalized headaches Hyperlipemia Hypertension Restless leg - Surgical History Surgical History: Surgical History (Last Reviewed 10/30/18 @ 20:47 by Senia Mirza MD) Hx of abdominoplasty Hx of cholecystectomy Hx of hysterectomy - Family History Family History: Family History (Last Reviewed 10/30/18 @ 20:47 by Senia Mirza MD) Sister Family history of Alzheimer's disease - Tobacco History Second Hand Smoke Exposure: No Smoking Status: Never smoker Tobacco Type: Cigarettes - Alcohol History How Often Do You Have a Drink Containing Alcohol: Never - Substance Use History Substance History: No History of Abuse - Travel History Recent Travel in the [place] Within the Last 8 Weeks: No Recent Travel Out of the Country Within the Last 8 Weeks: No - Immunization History Tetanus Immunization: Unsure Medications and Allergies Active Medications: Active Medications Sodium Chloride (Ns Inj) 1,000 mls @ 125 mls/hr IV.CONT .Q8H JOSIE Stop: 10/31/18 02:14 Last Admin: 10/30/18 19:06 Dose: 125 mls/hr Allergies Allergy/AdvReac Type Severity Reaction Status Date / Time No Known Allergies Allergy Verified 10/20/18 21:10 Home Medications Medication Instructions Recorded Confirmed Type carbidopa 50 mg PO QPM 10/20/18 10/30/18 History lisinopril 20 mg PO QPM 10/20/18 10/30/18 History metoprolol tartrate 50 mg PO QPM 10/20/18 10/30/18 History tramadol 50 mg PO BID 10/20/18 10/30/18 History lorazepam [Ativan] 0.5 mg PO DAILY 10/21/18 10/30/18 History amlodipine [Norvasc] 10 mg PO DAILY 10/30/18 10/30/18 History atorvastatin 20 mg PO DAILY 10/30/18 10/30/18 History citalopram 20 mg PO DAILY 10/30/18 10/30/18 History Exam Vital signs: Vital Signs 10/30/18 18:09 10/30/18 19:31 Pulse Rate 72 76 Respiratory Rate 18 18 Blood Pressure 203/86 H 171/74 H Pulse Oximetry 98 99 Intake & Output 10/30/18 10/30/18 10/31/18 06:59 18:59 06:59 Weight 72.364 kg Narrative: Gen.: No acute distress Head: Normocephalic. Atraumatic. EENT: Pupils equal round and reactive to light. Nose without drainage. Airway intact. Throat without injection. Cardiovascular: Regular rate and rhythm. No murmurs, rubs or gallops. Respiratory: Lungs clear to auscultation bilaterally. No wheezes or rhonchi. Abdomen: Soft, nontender, nondistended. No peritoneal signs. Musculoskeletal: No gross deformities. No edema. Skin: No obvious rashes or erythema. Neuro: Sensory and motor grossly intact. Cranial nerves II through XII grossly intact. Results - Labs CBC & Chem 7: 10/30/18 18:20 10/30/18 18:20 Labs: Laboratory Results - last 24 hr 10/30/18 10/30/18 10/30/18 18:20 18:20 18:20 WBC 6.2 RBC 4.05 Hgb 14.2 Hct 41.1 MCV 101.4 H MCH 35.2 H MCHC 34.7 RDW 14.1 Plt Count 248 MPV 8.5 Neut % (Auto) 63.8 Lymph % (Auto) 22.1 [place] % (Auto) 11.8 H Eos % (Auto) 1.5 Baso % (Auto) 0.8 Neut # (Auto) 4.0 Lymph # (Auto) 1.4 [place] # (Auto) 0.7 Eos # (Auto) 0.1 Baso # (Auto) 0.1 WBC Differential . Differential Comment Auto diff final PT 9.9 INR 1.0 APTT 19.2 L Sodium 138 Potassium 4.4 Chloride 108 H Carbon Dioxide 24.5 Anion Gap 6 BUN 24 H Creatinine 0.63 Estimated GFR Greater than 89 Random Glucose 97 Calcium 9.1 Magnesium 2.2 Total Bilirubin 0.3 AST 30 ALT 8 L Alkaline Phosphatase 97 Troponin I Less than 0.02 L Total Protein 7.1 Albumin 3.5 Caprini VTE Risk Assessment Caprini VTE Risk Assessment: Moderate/High Risk (score >= 2) Caprini Risk Assessment Model: Point Value = 1 Point Value = 2 Point Value = 3 Point Value = 5 Age 41-60 Minor surgery BMI > 25 kg/m2 Swollen legs Varicose veins or History of unexplained or recurrent spontaneous Oral contraceptives or hormone replacement Sepsis (< 1 month) Serious lung disease, including pneumonia (< 1 month) Abnormal pulmonary function Acute myocardial infarction Congestive heart failure (< 1 month) History of inflammatory bowel disease Medical patient at bed rest Age 61-74 Arthroscopic surgery Major open surgery (> 45 min) Laparoscopic surgery (> 45 min) Malignancy Confined to bed (> 72 hours) Immobilizing plaster cast Central venous access Age >= 75 History of VTE Family history of VTE Factor V Leiden Prothrombin [id number] Lupus anticoagulant Anticardiolipin antibodies Elevated serum homocysteine Heparin-induced thrombocytopenia Other congenital or acquired thrombophilia Stroke (< 1 month) Elective arthroplasty Hip, pelvis, or leg fracture Acute spinal cord injury (< 1 month) Prophylaxis Regimen: Total Risk Factor Score Risk Level Prophylaxis Regimen 0-1 Low Early ambulation 2 Moderate Order ONE of the following: *Sequential Compression Device (SCD) *Heparin 5000 units SQ BID 3-4 Higher Order ONE of the following medications: *Heparin 5000 units SQ TID *Enoxaparin/Lovenox 40 mg SQ daily (WT < 150 kg, CrCl > 30 mL/min) *Enoxaparin/Lovenox 30 mg SQ daily (WT < 150 kg, CrCl > 10-29 mL/min) *Enoxaparin/Lovenox 30 mg SQ BID (WT < 150 kg, CrCl > 30 mL/min) AND/OR *Sequential Compression Device (SCD) 5 or more Highest Order ONE of the following medications: *Heparin 5000 units SQ TID (Preferred with Epidurals) *Enoxaparin/Lovenox 40 mg SQ daily (WT < 150 kg, CrCl > 30 mL/min) *Enoxaparin/Lovenox 30 mg SQ daily (WT < 150 kg, CrCl > 10-29 mL/min) *Enoxaparin/Lovenox 30 mg SQ BID (WT < 150 kg, CrCl > 30 mL/min) AND *Sequential Compression Device (SCD) Assessment and Plan - Plan Assessment/plan: 1. Syncope Patient with syncopal episode at rest, concern for cardiac dysrhythmia, EKG showed normal sinus rhythm with first-degree AV block Monitor on telemetry Echo/carotid ultrasound pending Patient lost urinary continence concern for possible seizure, EEG pending 2. Hypertension Continue home amlodipine, lisinopril, metoprolol 3. Anxiety Holding citalopram as patient took her first dose today approximately 3 hours prior to her syncopal episode 4. Restless leg syndrome Continue home medications FEN Regular diet Electrolytes: Monitor and replete as needed Heparin
[2018-10-30] MEDS ORDERED: Lisinopril 10 MG Tablet PO SCH (22:00)
--- NOTE | 2018-10-30 22:26 | US ---
EXAM DATE: 10/30/2018 10:18 PM EST AGE/SEX: 83 years / Female INDICATIONS: Syncope. CLINICAL DATA: This is the patient's initial encounter. Patient reports that signs and symptoms have been present for 1 day and indicates a pain score of 0/10. MEDICAL/SURGICAL HISTORY: . Anxiety. Hyperlipidemia. Hypertension. Restless leg syndrome. Sleep apnea. Cholecystectomy. Hysterectomy. Abdominoplasty. COMPARISON: [facility], CTA THOR ABD AORTA W CONTRAST W 3D, 10/20/2018. . VELOCITY PARAMETERS: ICA/CCA Ratio: Right 1.5 , Left 1.6 ICA: Right 139.3 cm/sec, Left 122.1 cm/sec CCA: Right 95.1 cm/sec, Left 92.4 cm/sec ECA: Right 123.9 cm/sec, Left 125.9 cm/sec Vertebral: Right 74.2 cm/sec antegrade, Left 59.2 cm/sec antegrade FINDINGS: Right Carotid: Mild arteriosclerotic plaque is visualized.The waveforms are within normal limits. Left Carotid: Mild arteriosclerotic plaque is visualized. The waveforms are within normal limits. Other: None. CONCLUSION: 1. Right Internal Carotid Artery: Mild atherosclerotic plaque with less than 50% diameter stenosis b y velocity criteria. 2. Left Internal Carotid Artery: Mild atherosclerotic plaque with less than 50% diameter stenosis by velocity criteria. Electronically signed by: Mickey Nuno MD 10/30/2018 10:24 PM EST
[2018-10-30] MEDS: Heparin - SQ 10,000 UNITS/ML Vial SQ SCH (22:33)
[2018-10-30] MEDS ORDERED: Acetaminophen 325 MG Tablet PO PRN (23:03)
[2018-10-31 07:02] LABS: Baso % (Auto) 0.9 % (0.0-2.0); Eos # (Auto) 0.1 th/mm3 (0.0-0.4); Eos % (Auto) 1.1 % (0.0-4.0); Hematocrit 42.9 % (35.0-46.0); Hemoglobin 14.4 gm/dL (11.6-15.3); Lymph # (Auto) 1.2 th/mm3 (1.0-4.8); Lymph % (Auto) 24.3 % (9.0-44.0); Mean Corpuscular HGB Conc 33.6 % (32.0-36.0); Mean Corpuscular Hemoglobin 34.3 pg (27.0-34.0); Mean Corpuscular Volume 101.8 fL (80.0-100.0); Mean Platelet Volume 8.4 fL (7.0-11.0); Mono # (Auto) 0.5 th/mm3 (0.0-0.9); Mono % (Auto) 10.2 % (0.0-8.0); Neut # (Auto) 3.1 th/mm3 (1.8-7.7); Neut % (Auto) 63.5 % (16.0-70.0); Platelet Count 254 th/mm3 (150-450); Red Blood Count 4.21 mil/mm3 (4.00-5.30); Red Cell Distribution Width 13.8 % (11.6-17.2)
[2018-10-31 07:16] LABS: Calcium 8.8 mg/dL (8.5-10.1); Carbon Dioxide 29.7 meq/L (21.0-32.0); Potassium 4.2 meq/L (3.5-5.1)
[2018-10-31] MEDS ORDERED: Acetaminophen 325 MG Tablet PO PRN (09:25)
[2018-10-31] MEDS: Heparin - SQ 10,000 UNITS/ML Vial SQ SCH (10:04)
--- NOTE | 2018-10-31 11:03 | P.PN ---
Subjective Interval history: Follow up for syncope. The patient reports feeling better today, no further episodes of dizziness/lightheadedness/syncope. She does complain of a left sided frontotemporal headache which she states she gets very frequently. She states she has talked to her neurologist Dr. Andrews about this and he has prescribed her tramadol which helps. She otherwise denies any other medical complaints. She wants to go home. Physical Exam Vital signs: Vital Signs 10/30/18 18:09 10/30/18 19:31 10/30/18 21:02 Temperature Pulse Rate 72 76 76 Respiratory Rate 18 18 Blood Pressure 203/86 H 171/74 H Pulse Oximetry 98 99 10/30/18 21:15 10/31/18 00:00 10/31/18 00:20 Temperature 98.0 F 98.4 F Pulse Rate 76 83 83 Respiratory Rate 17 16 Blood Pressure 169/72 H 139/65 Pulse Oximetry 99 94 L 10/31/18 03:48 10/31/18 04:00 10/31/18 10:27 Temperature 98.1 F 98.1 F Pulse Rate 80 83 Respiratory Rate 18 16 16 Blood Pressure 143/66 H 162/72 H Pulse Oximetry 95 97 10/31/18 10:28 Temperature Pulse Rate 88 Respiratory Rate 16 Blood Pressure 139/63 Pulse Oximetry 97 Intake & Output 10/30/18 10/31/18 10/31/18 18:59 06:59 18:59 Intake Total 1240 / 1240 Balance 1240 / 1240 Weight 72.364 kg Intake: IV 1000 / 1000 NS Inj 1,000 ML @ 125 mls/hr IV 1000 / 1000 .CONT .Q8H [facility] Rx#:[id number] Oral 240 / 240 Other: # Voids 2 Date of Last Bowel Movement 10/29/18 Narrative: GENERAL: Well-nourished, well-developed pleasant elderly female patient in [facility]. Seen ambulating her room. SKIN: Warm and dry. No rash. HEENT: Normocephalic. Atraumatic. Pupils equal and round. Mucous membranes pink and moist. Mild left temporal tenderness to palpation. CARDIOVASCULAR: Regular rate and rhythm. No murmur appreciated. RESPIRATORY: No accessory muscle use. Clear to auscultation. Breath sounds equal bilaterally. GASTROINTESTINAL: Abdomen soft, non-tender, nondistended. Normoactive bowel sounds x4. MUSCULOSKELETAL: No obvious deformities. Extremities without clubbing, cyanosis , or edema. NEUROLOGICAL: Awake and alert. No obvious cranial nerve deficits. Moving all extremities spontaneously. Normal speech. PSYCHIATRIC: Appropriate mood and affect; insight and judgment normal. Results - Labs CBC & Chem 7: 10/31/18 06:20 10/31/18 06:20 Laboratory Results - last 24 hr 10/30/18 10/30/18 10/30/18 18:20 18:20 18:20 WBC 6.2 RBC 4.05 Hgb 14.2 Hct 41.1 MCV 101.4 H MCH 35.2 H MCHC 34.7 RDW 14.1 Plt Count 248 MPV 8.5 Neut % (Auto) 63.8 Lymph % (Auto) 22.1 Cavalier % (Auto) 11.8 H Eos % (Auto) 1.5 Baso % (Auto) 0.8 Neut # (Auto) 4.0 Lymph # (Auto) 1.4 Cavalier # (Auto) 0.7 Eos # (Auto) 0.1 Baso # (Auto) 0.1 WBC Differential . Differential Comment Auto diff final PT 9.9 INR 1.0 APTT 19.2 L Sodium 138 Potassium 4.4 Chloride 108 H Carbon Dioxide 24.5 Anion Gap 6 BUN 24 H Creatinine 0.63 Estimated GFR Greater than 89 Random Glucose 97 Calcium 9.1 Magnesium 2.2 Total Bilirubin 0.3 AST 30 ALT 8 L Alkaline Phosphatase 97 Troponin I Less than 0.02 L Total Protein 7.1 Albumin 3.5 10/31/18 10/31/18 06:20 06:20 WBC 5.0 RBC 4.21 Hgb 14.4 Hct 42.9 MCV 101.8 H MCH 34.3 H MCHC 33.6 RDW 13.8 Plt Count 254 MPV 8.4 Neut % (Auto) 63.5 Lymph % (Auto) 24.3 Cavalier % (Auto) 10.2 H Eos % (Auto) 1.1 Baso % (Auto) 0.9 Neut # (Auto) 3.1 Lymph # (Auto) 1.2 Cavalier # (Auto) 0.5 Eos # (Auto) 0.1 Baso # (Auto) 0.0 WBC Differential . Differential Comment Auto diff final PT INR APTT Sodium 142 Potassium 4.2 Chloride 110 H Carbon Dioxide 29.7 Anion Gap 2 L BUN 13 Creatinine 0.70 Estimated GFR 80 L Random Glucose 92 Calcium 8.8 Magnesium Total Bilirubin AST ALT Alkaline Phosphatase Troponin I Total Protein Albumin - Imaging Impressions Carotid Doppler Study 10/30/18 00:00 CONCLUSION: 1. Right Internal Carotid Artery: Mild atherosclerotic plaque with less than 50 % diameter stenosis by velocity criteria. 2. Left Internal Carotid Artery: Mild atherosclerotic plaque with less than 50 % diameter stenosis by velocity criteria. Assessment and Plan - Plan 83-year-old female with past medical history significant for anxiety, hypertension, hyperlipidemia, GONZALO and restless leg syndrome presents to the emergency department for evaluation of a syncopal episode. Syncope: acute -Patient with syncopal episode at rest, concern for cardiac dysrhythmia, EKG showed NSR with first-degree AV block -Monitor on telemetry -Echocardiogram normal with EF 55-60% -Carotid U/S with bilateral carotid plaque with < 50% narrowing -Patient also had urinary continence, concern for possible seizure, EEG pending -check orthostatics -symptoms resolved, no further episodes -recommended the patient follow up within 1-2 weeks with her neurologist Dr. Andrews Hypertension: chronic -Continue home amlodipine, lisinopril, metoprolol Anxiety: chronic -Holding citalopram as patient took her first dose today approximately 3 hours prior to her syncopal episode Restless leg syndrome -Continue home medications Headache: acute on chronic, mild -patient with left sided headache and some mild left temporal tenderness, will check ESR/CRP to eval for arteritis -patient states she has talked to her neurologist about the headaches, advised to continue f/up with Dr. Andrews DVT Prophylaxis: Heparin sq Discharge Planning: Possible discharge today if EEG unremarkable and if ESR/CRP wnl. 1700hrs: ESR/CRP wnl. EEG still not resulted, discussed with on-call neurologist , EEG will not be read until late tonight. The patient wants to go home. She has remained stable throughout admission, no further episodes, stable for discharge. Recommended f/up with neurologist Dr. Andrews for EEG results after discharge. No driving until cleared by neurology. Discharge patient to home Condition on discharge: Stable Heart Healthy Diet as tolerated Ad Kinsey activity Rx written: no new meds Follow-up with primary care physician and neurologist Dr. Andrews
--- NOTE | 2018-10-31 13:45 | ECHRPT ---
Indication: SYNCOPE CONCLUSIONS Normal left ventricular size. Wall thickness is normal. The left ventricular systolic function is normal with an estimated ejection fraction in the range of 55-60%. BP: / HR: Rhythm: Sinus MEASUREMENTS (Male / Female) Normal Values Technical Quality:Technically difficult study 2D ECHO LV Diastolic Diameter PLAX 4.1 cm 4.2 - 5.9 / 3.9 - 5.3 cm LV Systolic Diameter PLAX 2.9 cm IVS Diastolic Thickness 0.9 cm 0.6 - 1.0 / 0.6 - 0.9 cm LVPW Diastolic Thickness 0.9 cm 0.6 - 1.0 / 0.6 - 0.9 cm LV Relative Wall Thickness 0.4 LVOT Diameter 1.8 cm Aortic Root Diameter 3.1 cm M-MODE AV Cusp Separation MM 1.7 cm DOPPLER AV Peak Velocity 168.0 cm/s AV Peak Gradient 11.3 mmHg AV Mean Gradient 6.0 mmHg AV Velocity Time Integral 31.3 cm LVOT Peak Velocity 88.0 cm/s LVOT Peak Gradient 3.1 mmHg LVOT Velocity Time Integral 18.8 cm AV Area Cont Eq vti 1.5 cm AV Area Cont Eq pk 1.3 cm Mitral E Point Velocity 85.9 cm/s Mitral A Point Velocity 99.7 cm/s Mitral E to A Ratio 0.9 LV E' Lateral Velocity 8.4 cm/s Mitral E to LV E' Lateral Ratio 10.3 LV E' Septal Velocity 8.7 cm/s Mitral E to LV E' Septal Ratio 9.9 Right Atrial Pressure 10.0 mmHg PV Peak Velocity 53.4 cm/s PV Peak Gradient 1.1 mmHg FINDINGS LEFT VENTRICLE Normal left ventricular size. Wall thickness is normal. The left ventricular systolic function is normal with an estimated ejection fraction in the range of 55-60%. RIGHT VENTRICLE Normal right ventricular size and systolic function. LEFT ATRIUM The left atrial size is normal. RIGHT ATRIUM The right atrial size is normal. ATRIAL SEPTUM No atrial level shunt is demonstrated by color flow Doppler interrogation. AORTA The aortic root and proximal ascending aorta are normal in size on limited imaging. MITRAL VALVE Structurally normal mitral valve. No mitral valve stenosis or regurgitation. AORTIC VALVE Trileaflet aortic valve. No aortic valve stenosis or regurgitation. TRICUSPID VALVE Structurally normal tricuspid valve. No tricuspid valve stenosis or regurgitation. PULMONARY VALVE No pulmonary valve regurgitation or stenosis. VESSELS The inferior vena cava was not well visualized. PERICARDIUM No pericardial effusion. Kuldip Truong MD, FACC, [facility] [place] (Electronically Signed) Final Date:31 October 2018 13:45
--- NOTE | 2018-10-31 13:59 | ECG ---
Date Performed: 10/30/2018 Time Performed: 18:07:37 PTAGE: 83 years EKG: Sinus rhythm WITH FIRST DEGREE AV BLOCK ABNORMAL ECG Since the PREVIOUS TRACING , no significant change noted PREVIOUS TRACIN10/21/2018 06.13 DOCTOR: Yony Sosa Interpretating Date/Time 10/31/2018 13:53:42
[2018-10-31] MEDS ORDERED: Metoprolol Tartrate 50 MG Tablet PO SCH (18:00)
[2018-10-31] MEDS ORDERED: amLODIPine 5 MG Tablet PO SCH (18:00)
--- NOTE | 2018-10-31 19:53 | MG ---
cc: Kanika Barrios MD EEG NUMBER: [id number] REFERRING PHYSICIAN: Hermes. ROOM NUMBER: -. Awake, drowsy, asleep with photic only. An 83-year-old woman admitted with syncope on Sinemet. DESCRIPTION OF RECORD: Overall good alpha rhythm of 9.5 Hz, 20-50 microvolts symmetrical. Some minor eye movement artifact. Otherwise, overall fairly well organized background. EKG difficult to read, only 1 lead. I do not see any epileptiform features. Some muscle artifact from tremor. Photic stimulation, a good driving response. IMPRESSION: Normal-appearing electroencephalogram without any epileptiform features in this recording. Kanika Barrios MD DF/ , 05:25 PM , 05:29 PM
== END 2018-10-31 18:19 | disposition home or self-care (01) ==
LOC: NEPE 18:00 → NEDA 18:00 → NEPFCDU 21:10
PROVIDERS: ADMIT Hospitalist; ATTEND Hospitalist
DX: G47.33 Obstructive sleep apnea (adult) (pediatric); F41.9 Anxiety disorder, unspecified; F17.210 Nicotine dependence, cigarettes, uncomplicated; Z90.710 Acquired absence of both cervix and uterus; Z82.0 Family history of epilepsy and other diseases of the nervous system; I65.23 Occlusion and stenosis of bilateral carotid arteries; Z90.49 Acquired absence of other specified parts of digestive tract; I10 Essential (primary) hypertension; R55 Syncope and collapse; E78.5 Hyperlipidemia, unspecified; G25.81 Restless legs syndrome